=== PATIENT | female | born 1955 | race Caucasian/White ===

== ENCOUNTER 2023-08-03 08:19 | Emergency (ER) | payer MEDICARE ==
[2023-08-03] MEDS ORDERED: Ketorolac Tromethamine 30 MG (1 mL) VIAL ONE (08:29)
== END 2023-08-03 09:09 | disposition home or self-care (01) ==
LOC: ERS 08:19
DX: M25.572 Pain in left ankle and joints of left foot (principal); J45.909 Unspecified asthma, uncomplicated; Z55.6 Problems related to health literacy
CPT/HCPCS: 96372; J1885

== ENCOUNTER 2025-03-03 11:21 | Observation (INO) | payer MEDICARE ==
[2025-03-03] MEDS ORDERED: Lidocaine 1% w/Epinephrine 1:100K 20 ML VIAL ONE (11:30)
[2025-03-03] MEDS ORDERED: Rabies Immune Globulin/PF 300 UNITS/ML VIAL ONE ×2 (14:40→15:42)
[2025-03-03] MEDS ORDERED: Rabies Vaccine Human 2.5 UNITS VIAL ONE (14:40)
[2025-03-03] MEDS ORDERED: HYDROmorphone 2 MG/ML VIAL ONE (16:48)
[2025-03-03] MEDS ORDERED: PHENYLEPHRINE-NS 100 MCG/ML 10 ML SYRINGE ONE (16:48)
[2025-03-03] MEDS ORDERED: PROPOFOL 200 MG/20 ML VIAL ONE (16:51)
[2025-03-03] MEDS ORDERED: Glycopyrrolate 0.2 MG/ML 5 ML SYRINGE ONE (16:51)
[2025-03-03] MEDS ORDERED: Ondansetron PF 4 MG/2 ML Vial ONE (17:34)
[2025-03-03] MEDS ORDERED: TETANUS, DIPHTHERIA TOX,ADULT (TDVAX) 0.5 ML VIAL IM ONE (18:21)
[2025-03-03] MEDS: Clindamycin/D5W 900 MG in Premix 1 BAG IVPB SCH (20:09)
[2025-03-03] MEDS: oxyCODONE 5 MG TAB PO PRN (20:28)
[2025-03-03] MEDS: Methocarbamol 500 MG TAB PO SCH (20:28)
[2025-03-03] MEDS: Gabapentin 300 MG CAP PO PRN (20:42)
[2025-03-04] MEDS: TETANUS AND DIPHTHERIA TOX/PF 0.5 ML DISP.SYRIN IM SCH (00:12)
[2025-03-04 01:48] VITALS: BMI 22.1
[2025-03-04 07:29] LABS: #Basophils Less than 0.03 10x3/uL (0.0-0.2); #Eosinophils Less than 0.03 10x3/uL (0.0-0.7); #Monocytes 0.60 10x3/uL (0.11-0.59); #Neutrophils 5.78 10x3/uL (1.40-6.50); %Basophils 0.1 % (0.0-1.0); %Eosinophils 0.1 % (0.0-10.0); %Lymphocytes 16.3 % (21.0-51.0); %Monocytes 7.8 % (0.0-10.0); %Neutrophils 75.2 % (42.0-75.0); Hematocrit 37.1 % (36.0-47.0); Hemoglobin 12.1 g/dL (12.0-16.0); Mean Corpuscular Hemoglobin 28.2 pg (27.0-31.0); Mean Corpuscular Volume 86.5 fL (78.0-98.0); Platelet Count 194 10x3/uL (130-400); Red Blood Cell (RBC) Count 4.29 mill/uL (4.20-5.40); White Blood Cell (WBC) Count 7.69 10x3/uL (4.8-10.8)
[2025-03-04] MEDS: Clindamycin 150 MG CAP PO SCH (09:28)
[2025-03-04 11:47] VITALS: BP 116/72; TEMP 98.2
== END 2025-03-04 13:12 | disposition home or self-care (01) ==
LOC: ERS 11:21 → SURG A 14:48 → ERS 16:24
PROVIDERS: ADMIT Student in an Organized Health Care Education/Training Program; ATTEND Student in an Organized Health Care Education/Training Program
PROC: 0QB90ZZ Excision of Left Femoral Shaft, Open Approach (ICD-10-PCS; principal; 2025-03-03)
DX: S81.811A Laceration without foreign body, right lower leg, initial encounter (principal); W55.89XA Other contact with other mammals, initial encounter
CPT/HCPCS: 11044; 11047; 71045; 72100; 73700; 85025; 90375; 90471; 90675; 90714; 93005; 96365; 96375; 99285; G0390; J1100; J1171; J2270; J2405; J2704; J3010; J3490; 36415